=== PATIENT | female | born 1960 | race African-American/Black ===

== ENCOUNTER 2017-08-29 08:14 | Emergency (ER) | payer OTHER ==
[~2017-08-29] VITALS: Ht 154.9 cm; Wt 72.6 kg
[~2017-08-29 08:14] MED LIST: AUGMENTIN 875875 MG PO; BENAZEPRIL HCL20 MG PO; FIORICET 50-321 EACH PO; FLEXERIL PO; FLONASE NS; HYDROCHLOROTHIA25 M1 PO; NORVASC10 MG PO
[2017-08-29] MEDS ORDERED: ZANTAC 150MG T150 MG PO (08:21)
[2017-08-29] MEDS ORDERED: MOBIC15 MG PO (08:45)
[2017-08-29 09:24] VITALS: BP 132/74
== END 2017-08-29 09:25 | disposition home or self-care (01) ==
LOC: ER 08:14
DX: S46.912A Strain of unspecified muscle, fascia and tendon at shoulder and upper arm level, left arm, initial encounter (principal); I10 Essential (primary) hypertension; Z98.890 Other specified postprocedural states; Z88.5 Allergy status to narcotic agent; X50.0XXA Overexertion from strenuous movement or load, initial encounter; Y93.89 Activity, other specified; Y92.89 Other specified places as the place of occurrence of the external cause; Y99.0 Civilian activity done for income or pay

== ENCOUNTER 2018-03-21 13:48 | Emergency (ER) | payer OTHER ==
[~2018-03-21] VITALS: Ht 154.9 cm; Wt 76.2 kg
[~2018-03-21 13:48] MED LIST changes: +MOBIC15 MG PO; +ZANTAC 150MG T150 MG PO
[2018-03-21] MEDS ORDERED: MOBIC7.5 MG PO (15:04)
[2018-03-21] MEDS ORDERED: HYDROCODONE-AP1 EAC6 PO (15:04)
[2018-03-21 15:27] VITALS: BP 131/75
== END 2018-03-21 15:28 | disposition home or self-care (01) ==
LOC: ER 13:48
DX: M54.9 Dorsalgia, unspecified (principal); M25.512 Pain in left shoulder; S09.8XXA Other specified injuries of head, initial encounter; I10 Essential (primary) hypertension; Z88.5 Allergy status to narcotic agent; V89.2XXA Person injured in unspecified motor-vehicle accident, traffic, initial encounter; Y93.I9 Activity, other involving external motion; Y92.89 Other specified places as the place of occurrence of the external cause; Y99.8 Other external cause status

== ENCOUNTER 2018-08-17 19:22 | Emergency (ER) | payer BC ==
[~2018-08-17] VITALS: Ht 157.5 cm; Wt 76.2 kg
[~2018-08-17 19:22] MED LIST changes: +HYDROCODONE-AP1 EAC6 PO; +MOBIC7.5 MG PO
[2018-08-17] MEDS ORDERED: PREDNISONE 20 M20 MG PO (20:35)
[2018-08-17] MEDS ORDERED: TESSALON PERLE100 MG PO (20:35)
[2018-08-17] MEDS ORDERED: DOXYCYCLINE 10100 MG PO (20:38)
== END 2018-08-17 20:44 | disposition home or self-care (01) ==
LOC: ER 19:22
DX: J18.9 Pneumonia, unspecified organism (principal); I10 Essential (primary) hypertension; Z88.5 Allergy status to narcotic agent

== ENCOUNTER 2021-09-23 14:55 | Observation (INO) | payer BC ==
[~2021-09-23] VITALS: Ht 154.9 cm; Wt 77.1 kg
[~2021-09-23 14:55] MED LIST changes: +DOXYCYCLINE 10100 MG PO; +PREDNISONE 20 M20 MG PO; +TESSALON PERLE100 MG PO
[2021-09-23 14:59] VITALS: BP 189/93
[2021-09-23 15:20] LABS: ABSOLUTE NEUTROPHILS 4.6 thou/uL (1.4-8.2); BASOPHILS 1.3 % (0.0-2.0); EOSINOPHILS 3.9 % (0.0-3.0); HEMATOCRIT 36.7 % (37.0-47.0); HEMOGLOBIN 11.8 gm/dL (12.0-15.0); LYMPHOCYTES 33.2 % (24.0-44.0); MCH 28.2 pg (26.0-34.0); MCHC 32.3 g/dL (28.0-37.0); MCV 87.3 fL (80.0-100.0); MONOCYTES 9.4 % (1.0-8.0); PLATELET COUNT 271 thou/uL (150-400); POLYS 52.2 % (36.0-66.0); WBC 8.8 thou/uL (4.0-11.0)
[2021-09-23 15:27] LABS: POTASSIUM 3.2 mmol/L (3.5-5.1)
[2021-09-23] MEDS ORDERED: IRBESARTAN75 MG PO (17:31)
[2021-09-23] MEDS ORDERED: FAMOTIDINE 20 M20 MG PO (17:34)
[2021-09-23 17:59] VITALS: BP 157/84
[2021-09-23 18:20] VITALS: BP 146/82
--- NOTE | 2021-09-23 18:23 | NUR ---
PT JUST ARRIVED FROM ER. ER STATED PT ARRIVED WITH CHEST PAIN AND RECEIVED 3 DOSES OF NITRO WITH SOME PAIN RELIEF. PT STATED SHE IS STILL HAVING CHEST PAIN, DENIES, N/V, DENIES SOA.
[2021-09-23 19:55] VITALS: BP 157/87
--- NOTE | 2021-09-24 04:22 | NUR ---
Took over pts care at 1900, alert and orientedx4, admission assessment, hx and education completed, denies chest pain, sr on tele, on ra, iv to the RFA initiated, pt taken to CT TO R/O PE, on RA, vital signs stable, no needs at this time, will continue to monitor and assess pt for chest pain
[2021-09-24 04:38] VITALS: BP 149/79
[2021-09-24 07:30] VITALS: BP 149/59
--- NOTE | 2021-09-24 08:45 | EKG ---
[address] [address] ELECTROCARDIOGRAM REPORT Name: STEPHANIE VARGAS Room #: 214-[facility].#: [id number] Admission: 09/23/21 Attend Phys: Isamar Nelson MD Discharge: Date of : 60 Report #: [id number] [facility] ED Test Date: 2021-09-23 Test Time: 15:01:06 Pat Name: STEPHANIE VARGAS Department: Room: 214 Gender: F [employer] P[employer]: SAULO : 1960 Requested By: Del Montero Order Number: [id number] MD: Jay Jean Baptiste Measurements Intervals Felt Rate: 72 P: 48 ID: 171 QRS: 24 QRSD: 93 T: 17 QT: 376 QTc: 412 Interpretive Statements Sinus rhythm Normal tracing No previous ECG available for comparison Electronically Signed On 09-24-2021 8:45:11 [employer] by Jay Jean Baptiste [email or web address] <ELECTRONICALLY SIGNED> By: Jay Jean Baptiste MD, [facility] 09/24/21 0845 1501 1501 Jay Jean Baptiste MD, FAC /EPI
[2021-09-24 11:20] VITALS: BP 146/77
[2021-09-24 11:28] LABS: HEMATOCRIT 32.3 % (37.0-47.0); HEMOGLOBIN 10.7 gm/dL (12.0-15.0); MCH 28.3 pg (26.0-34.0); MCHC 33.2 g/dL (28.0-37.0); MCV 85.2 fL (80.0-100.0); RBC 3.78 mil/uL (4.20-5.00); RDW 14.9 % (10.5-14.5); WBC 7.3 thou/uL (4.0-11.0)
[2021-09-24 11:50] LABS: ANION GAP 10 mmol/L (7-16); BUN 12 mg/dL (7-18); CALCIUM 8.7 mg/dL (8.5-10.1); CHLORIDE 109 mmol/L (98-107); CHOLESTEROL 154 mg/dL (<200); CO2 24 mmol/L (21-32); CREATININE 0.7 mg/dL (0.6-1.0); GLUCOSE 91 mg/dL (74-106); HDL CHOLESTEROL 50 mg/dL (>40); LDL CHOLESTEROL 90 mg/dL (<100); POTASSIUM 3.7 mmol/L (3.5-5.1); SODIUM 143 mmol/L (136-145); TC:HDL 3.1 Ratio (Not establshd); TRIGLYCERIDE 71 mg/dL (<150); VLDL 14 mg/dL (<40)
[2021-09-24] MEDS ORDERED: NITROGLYCERIN0.4 MG SUBLING (14:53)
[2021-09-24] MEDS ORDERED: LIPITOR40 MG PO (14:53)
[2021-09-24] MEDS ORDERED: KAPSPARGO SPRIN25 MG PO (14:53)
[2021-09-24] MEDS ORDERED: CEFDINIR300 MG PO (14:53)
[2021-09-24 15:33] VITALS: BP 147/71
[2021-09-24 15:34] VITALS: BP 146/77
--- NOTE | 2021-09-24 17:07 | NUR ---
PATIENT DISCHARGED HOME, EDUCATION DONE AT BEDSIDE. NO QUESTIONS OR CONCERNS AT TIME OF EDUCATION. IV AND TELE REMOVED. TAKEN TO ER DOORS BY STAFF TO GO HOME BY PRIVATE VEHICLE.
[2021-09-25 04:07] LABS: GLYCOHEMOGLOBIN (HGB A1C) 5.9 % (4.8-5.6)
== END 2021-09-24 17:42 | disposition home or self-care (01) ==
LOC: ER 14:55 → EROBS 17:34 → 2N 18:00
PROVIDERS: Emergency Medicine; ADMIT Hospitalist; ATTEND Hospitalist
DX: R07.89 Other chest pain (principal); Z20.822 Contact with and (suspected) exposure to COVID-19; I10 Essential (primary) hypertension; G47.33 Obstructive sleep apnea (adult) (pediatric); E78.5 Hyperlipidemia, unspecified; E11.9 Type 2 diabetes mellitus without complications; E87.6 Hypokalemia; D64.9 Anemia, unspecified; Z90.49 Acquired absence of other specified parts of digestive tract